=== PATIENT | male | born 1975 | race Caucasian/White ===

== ENCOUNTER 2021-06-26 12:46 | Emergency (ER) | payer BC ==
[~2021-06-26] VITALS: Ht 180.3 cm; Wt 102.1 kg
[2021-06-26 13:01] VITALS: BP 153/101
--- NOTE | 2021-06-26 13:02 | PHYS DOC ---
Adult General Chief Complaint Chief Complaint: HAND PROBLEM HPI HPI Patient is a 46-year-old male patient with a history of PTSD presenting today with hand injury. Patient states he had a bad nightmare last night and fell out of bed this morning bracing himself with the right hand. Denies any loss of c onsciousness, denies hitting his head on the ground. States the pain is worse on the lateral aspect of the hand and on range of motion. Rates the pain as mild and intermittent. States the brace he had on from previous injury helps with the pain. Patient is right handed (JOSEPH PACK APRN) Review of Systems Review of Systems Constitutional: Denies fever or chills [] Musculoskeletal: Reports right hand pain Integument: Denies rash or skin lesions [] Neurologic: Denies headache, focal weakness or sensory changes [] All other systems were reviewed and found to be within normal limits, except as documented in this note. (JOSEPH PACK APRN) Physical Exam Physical Exam Constitutional: Well developed, well nourished, no acute distress, non-toxic appearance. [] Skin: Warm, dry, no erythema, no rash. [] Back: No tenderness, no CVA tenderness. [] Extremities: Right hand with mild soft tissue swelling on the dorsal hand along the fourth and fifth metacarpals. Tenderness along the fourth and fifth meta carpals. Limited range of motion to the right fingers due to pain. Adequate radial, medial, ulnar sensation to the right fingers. +2 right radial pulse. Cap refill less than 2 seconds to right fingers Neurologic: Alert and oriented X 3, normal motor function, normal sensory function, no focal deficits noted. [] Psychologic: Affect normal, judgement normal, mood normal. [] (JOSEPH PACK APRN) EKG EKG [] (JOSEPH PACK APRN) Radiology/Procedures Radiology/Procedures []ROCEDURE: HAND RIGHT 3V Exam performed: Right hand 3 views HISTORY: Right hand pain, status post fall. DATE OF SERVICE: 06/26/2021. COMPARISON: None available FINDINGS: There is a obliquely oriented fracture mid diaphysis of the left fifth metacarpal. There is also a small avulsion fracture of the radial styloid process. Is diffuse soft tissue swelling. No foreign body. IMPRESSION: Nondisplaced fracture mid diaphysis right fifth metacarpal with a small avulsion radial styloid process. Electronically signed by: Floridalma Middleton MD (06/26/2021 1:14 PM) [facility] DICTATED AND SIGNED BY: FLORIDALMA MIDDLETON MD DATE: 06/26/211311 CC: MILAGROS GARCIA; JOSEPH PACK APRN ~MTH0 0 (JOSEPH PACK APRN) Heart Score C/O Chest Pain: N/A Risk Factors: Risk Factors: DM, Current or recent (<one month) smoker, HTN, HLP, family history of CAD, obesity. Risk Scores: Risk Factors: DM, Current or recent (<one month) smoker, HTN, HLP, family history of CAD, obesity. (JOSEPH PACK APRN) Course & Med Decision Making Course & Med Decision Making Pertinent Labs and Imaging studies reviewed. (See chart for details) This is a 46-year-old male patient presenting to the ED today with right hand pain after falling off the bed this morning. Right hand x-rays interpreted by radiologist were noted for nondisplaced fracture mid diaphysis right fifth metacarpal with a small avulsion radial styloid process. Patient was placed in a ulnar gutter splint by the ED RN, neurovascular exam done by me is normal. Ice elevation encouraged. Follow-up with orthopedic doctor in the course of this week. Contact information provided to call tomorrow (JOSEPH PACK APRN) Dragon Disclaimer Dragon Disclaimer This electronic medical record was generated, in whole or in part, using a voice recognition dictation system. (JOSEPH PACK APRN) Attending Co-Sign The patient was seen and interviewed as well as examined at the bedside. The chart was reviewed. The case was discussed. Agree with the plan of care. (MAXWELL BARRERA DO) Departure Departure: Impression: Primary Impression: Fracture of fifth metacarpal bone Additional Impression: Fall Disposition: 01 HOME / SELF CARE / HOMELESS Condition: STABLE Referrals: MILAGROS GARCIA (PCP) Patient Instructions: Hand Fracture, Fifth Metacarpal Additional Instructions: You have fractured your right fifth metacarpal bone. Please contact the provided orthopedic doctor tomorrow morning and set up a follow-up ointment. Try to ice and elevate the extremity. Dr. Tse Orthopedic surgeon [phone] Scripts Hydrocodone Bit/Acetaminophen (HYDROCODONE-APAP 5-325 ) 1 Each Tablet 1 TAB PO PRN Q6HRS PRN for PAIN, #14 TAB 0 Refills Prov: JOSEPH PACK [employer] 06/26/21 Problem Qualifiers Primary Impression: Fracture of fifth metacarpal bone Encounter type: initial encounter Fracture type: closed Metacarpal locat ion: shaft Fracture alignment: nondisplaced Laterality: right Qualified Codes: S62.356A - Nondisplaced fracture of shaft of fifth metacarpal bone, right hand, initial encounter for closed fracture Additional Impression: Fall Encounter type: initial encounter Qualified Codes: W19.XXXA - Unspecified fall, initial encounter JOSEPH PACK APRN Jun 26, 2021 13:02 MAXWELL BARRERA DO Jun 27, 2021 08:38
[2021-06-26] MEDS ORDERED: HYDROcodone/APAP 5/325MG 1 TAB TABLET PO ONE (13:15)
--- NOTE | 2021-06-26 13:16 | RAD ---
Exam performed: Right hand 3 views HISTORY: Right hand pain, status post fall. DATE OF SERVICE: 06/26/2021. COMPARISON: None available FINDINGS: There is a obliquely oriented fracture mid diaphysis of the left fifth metacarpal. There is also a sm all avulsion fracture of the radial styloid process. Is diffuse soft tissue swelling. No foreign body . IMPRESSION: Nondisplaced fracture mid diaphysis right fifth metacarpal with a small avulsion radial styloid proce ss. Electronically signed by: Floridalma Middleton MD (06/26/2021 1:14 PM) [facility]
[2021-06-26] MEDS ORDERED: HYDR-2155 PO (14:07)
== END 2021-06-26 14:21 | disposition home or self-care (01) ==
LOC: ER 12:46
DX: S62.306A Unspecified fracture of fifth metacarpal bone, right hand, initial encounter for closed fracture (principal); S52.511A Displaced fracture of right radial styloid process, initial encounter for closed fracture; W06.XXXA Fall from bed, initial encounter; Y93.89 Activity, other specified; Y92.89 Other specified places as the place of occurrence of the external cause; Y99.8 Other external cause status
CPT/HCPCS: 29125; 73130; 99283